=== PATIENT | female | born 1990 | race Hispanic/Latino ===

== ENCOUNTER 2025-01-17 16:48 | Emergency (ER) | payer OTHER ==
[~2025-01-17] VITALS: Ht 152.4 cm; Wt 55.8 kg
[2025-01-17 17:08] LABS: APPEARANCE,URINE CLEAR (CLEAR); BILIRUBIN,URINE NEGATIVE (NEGATIVE); COLOR,URINE YELLOW (YELLOW); GLUCOSE, URINE (UA) NEGATIVE (NEGATIVE); KETONES,URINE 5 mg/dL (NEGATIVE); LEUKOCYTE ESTERASE ,URINE NEGATIVE Leu/uL (NEGATIVE); NITRATE,URINE NEGATIVE (NEGATIVE); OCCULT BLOOD,URINE LARGE (NEGATIVE); PH,URINE 6.5 (5.0-8.0); PROTEIN,URINE 50 mg/dL (NEGATIVE)
[2025-01-17 17:11] LABS: ADD UA MICROSCOPIC YES
[2025-01-17 17:12] LABS: BACTERIA,URINE RARE /HPF (None Seen); MUCUS,URINE FEW LPF (None Seen); SQUAMOUS EPITHELIAL CELL,UR FEW /HPF (0-2)
[2025-01-17 17:15] LABS: BASOPHILS # (AUTO) 0.07 K/uL (0.00-0.20); BASOPHILS % (AUTO) 0.9 % (0.0-5.0); EOSINOPHILS # (AUTO) 0.04 K/uL (0.00-0.70); EOSINOPHILS % (AUTO) 0.5 % (0.0-8.0); HEMATOCRIT 30.1 % (36-48); IMMATURE GRANULOCYTE ABSOLUTE 0.01 K/uL (0-1); LYMPHOCYTES # (AUTO) 2.3 K/uL (1.0-4.8); LYMPHOCYTES % (AUTO) 30.5 % (21.0-51.0); MEAN CORPUSCULAR HEMOGLOBIN 22.1 pg (27.0-33.0); MEAN CORPUSCULAR HGB CONC 29.6 g/dL (32.0-36.0); MEAN CORPUSCULAR VOLUME 74.7 fL (79-99); MONOCYTES # (AUTO) 0.6 K/uL (0.1-1.0); MONOCYTES % (AUTO) 7.9 % (3.0-13.0); NEUTROPHILS # (AUTO) 4.5 K/uL (1.8-7.7); NEUTROPHILS % (AUTO) 60.1 % (40.0-77.0); PLATELET COUNT (AUTO) 392 K/uL (130-400); RED BLOOD CELL COUNT(AUTO) 4.03 MIL/uL (4.00-5.50); RED CELL DISTRIBUTION WIDTH 17.2 % (11.0-15.5); WHITE BLOOD COUNT (AUTO) 7.5 K/uL (4.8-10.8)
[2025-01-17 17:17] LABS: HCG,QUALITATIVE URINE POSITIVE (NEGATIVE)
[2025-01-17 17:22] LABS: CREATININE 0.5 mg/dL (0.5-1.0); POTASSIUM 3.6 mmol/L (3.5-5.1)
--- NOTE | 2025-01-17 17:59 | ERN ---
General Chief Complaint: Vaginal Bleeding Stated Complaint: BLEEDING IN Time Seen by MD: 16:50 Source: patient History of Present Illness Initial Comments Patient is a 34-year-old female coming in to be evaluated for vaginal bleed. Patient states he was a at five weeks by date and noticed earlier today bleeding vaginal area. She states he had mild abdominal discomfort in his here for further evaluation. Allergies: Coded Allergies: No Known Drug Allergies (Unverified Allergy, Unknown, 01/17/25) Past Medical History Past Medical History: No Pertinent History Past Surgical History: Other Surgical History Other: BBL Female( History) LMP: Dec 07, 2024 : 2 Para: 1 Aborts: 0 ROS Dictation CONSTITUTIONAL: No chills, no fever, no weakness, no diaphoresis, no malaise. HEAD/FACE: No signs of trauma. EENT: No eye pain, no blurred vision, no tearing, no double vision, no ear pain, no ear discharge, no nose pain, no nasal congestion, no throat pain, no throat swelling, no mouth pain. RESPIRATORY: No cough, no orthopnea, no SOB, no stridor, no wheezing. CARDIOVASCULAR: No chest pain, no edema, no palpitations, no syncope. GASTROINTESTINAL/ABDOMINAL: No abdominal pain, no constipation, no diarrhea, no nausea, no vomiting. GENITOURINARY: No abnormal discharge, no dysuria, no frequent urination, no hematuria. No complaints of pain in the genitals. MUSCULOSKELETAL: No back pain, no gout, no joint pain, no joint swelling, no muscle pain, no muscle stiffness, no neck pain. INTEGUMENTARY: No change in color, no change in hair/nails, no dryness, no lesion, no lumps, no rash. NEUROLOGICAL/PSYCH: No anxiety, not depressed, no emotional problem, no headache, no numbness, no pre-existing deficit, no history of seizures, no tremors, no weakness. HEMATOLOGIC/LYMPHATIC: Not anemic, no history of blood clots, no apparent bleeding, no bruising, glands not swollen. All Systems Negative, Except as Noted. Physical Exam Physical Exam Dictation VITAL SIGNS: Reviewed. GENERAL APPEARANCE: Alert, oriented x3, no acute distress, obese. HEAD AND FACE: Non-traumatic. EYES: PERRL, pink conjunctivas, eyelid no trauma, anterior chamber clear. EARS: Pinnas intact and no signs of trauma or erythema. Ear canals clear and no discharge. TMs no erythema. NOSE: No discharge, no bleeding. OROPHARYNX: Mouth normal, teeth no caries, tongue pink. Pharynx clear, no erythema. Tonsils no exudates, no abscesses noted. Mucous membrane moist. NECK: Supple, non-tender, no thyromegaly, no masses, no JVD, no bruits. BREAST: Deferred. CHEST: No tenderness, no crepitus, no paradoxical movement, no retractions. LUNGS: Clear, well-ventilated, symmetric, no rales, no wheezing, no rhonchi, no stridor, good breath sounds bilaterally. HEART: Regular rate, regular rhythm, no murmur, no gallops. VASCULAR: No peripheral edema. ABDOMEN: Soft, positive bowel sounds, nondistended, no guarding, nontender, no rebound, no masses no hepatomegaly, no splenomegaly, no Lopez's sign, no herni as. RECTAL: Deferred. GENITAL: Deferred. NEUROLOGICAL: Normal speech, gross motor function intact, gross sensory function intact. MUSCULOSKELETAL: Neck nontender, full range of motion, back nontender, full range of motion. EXTREMITIES: Nontender, full range of motion. SKIN: Color pink, dry, no turgor, no rash, no lacerations, no abrasions, no contusions. LYMPHATICS: Deferred. Results Laboratory and Microbiology Lab and Micro Result Laboratory Tests Test 01/17/25 17:00 01/17/25 17:07 Urine Color YELLOW (YELLOW) Urine Appearance CLEAR (CLEAR) Urine pH 6.5 (5.0-8.0) Urine Specific Sterling 1.039 (1.001-1.031) Urine Protein 50 mg/dL (NEGATIVE) H Urine Glucose (UA) NEGATIVE mg/dL (NEGATIVE) Urine Ketones 5 mg/dL (NEGATIVE) H Urine Occult Blood LARGE (NEGATIVE) H Urine Nitrate NEGATIVE (NEGATIVE) Urine Bilirubin NEGATIVE mg/dL (NEGATIVE) Urine Urobilinogen 2.0 mg/dL (0.2-1.0) H Urine Leukocyte Esterase NEGATIVE Gabo/uL Urine RBC 6-10 /HPF (0-1) H Urine WBC 2-5 /HPF (0-1) H Urine Squamous Epithelial Cells FEW /HPF (0-2) Urine Bacteria RARE /HPF (None Seen) Urine HCG, Qualitative POSITIVE (NEGATIVE) H White Blood Count 7.5 K/uL (4.8-10.8) Red Blood Count 4.03 MIL/uL (4.00-5.50) Hemoglobin 8.9 g/dL (12.0-16.0) L Hematocrit 30.1 % (36-48) L Mean Corpuscular Volume 74.7 fL (79-99) L Mean Corpuscular Hemoglobin 22.1 pg (27.0-33.0) L Mean Corpuscular Hemoglobin Concent 29.6 g/dL (32.0-36.0) L Red Cell Distribution Width 17.2 % (11.0-15.5) H Platelet Count 392 K/uL (130-400) Mean Platelet Volume 8.6 fL (7.5-10.5) Immature Granulocyte % (Auto) 0.1 % (0-1) Neutrophils (%) (Auto) 60.1 % (40.0-77.0) Lymphocytes (%) (Auto) 30.5 % (21.0-51.0) Monocytes (%) (Auto) 7.9 % (3.0-13.0) Eosinophils (%) (Auto) 0.5 % (0.0-8.0) Basophils (%) (Auto) 0.9 % (0.0-5.0) Neutrophils # (Auto) 4.5 K/uL (1.8-7.7) Lymphocytes # (Auto) 2.3 K/uL (1.0-4.8) Monocytes # (Auto) 0.6 K/uL (0.1-1.0) Eosinophils # (Auto) 0.04 K/uL (0.00-0.70) Basophils # (Auto) 0.07 K/uL (0.00-0.20) Absolute Immature Granulocyte (auto 0.01 K/uL (0-1) Nucleated Red Blood Cells 0.0 % (0.0-0.19) Red Blood Cell Morphology See comments Sodium Level 139 mmol/L (136-145) Potassium Level 3.6 mmol/L (3.5-5.1) Chloride Level 104 mmol/L (101-111) Carbon Dioxide Level 27 mmol/L (21-32) Blood Urea Nitrogen 11 mg/dL (7-18) Creatinine 0.5 mg/dL (0.5-1.0) Glomerular Filtration Rate Calc 125 mL/min (>90) Random Glucose 95 mg/dL (70-105) Total Calcium 8.7 mg/dL (8.5-10.1) Human Chorionic Gonadotropin, Quant 369 mIU/mL (0-5) H Labs Reviewed?: Yes MDM MDM: Differential diagnosis: Miscarriage, threatened miscarriage, Rationale: Tests considered and ordered secondary to shared decision making include: labs, ECG and radiology Previous outside records reviewed: Old ER visits. Patient is a 34 Year old female coming in to be evaluated for vaginal bleed. Ultrasound did not disclose any findings possible miscarriage. Patient was advised appropriate follow up with PCP OBGYN in 1-2 weeks. ED Course Orders Procedure Category Date Status Time Cbc With Differential LAB 01/17/25 Complete 16:53 Hcg,Quantitative LAB 01/17/25 Complete 16:53 ,Urine Test LAB 01/17/25 Complete 16:53 Urinalysis Profile LAB 01/17/25 Complete 16:53 Basic Metabolic Panel LAB 01/17/25 Complete 16:53 Us Ob <14 Weeks US 01/17/25 Taken 16:53 Vital Signs Date Time Temp Pulse Resp B/P (MAP) Pulse Ox O2 Delivery O2 Flow Rate FiO2 01/17/25 16:49 98.1 88 16 112/74 98 Room Air 0 01/17/25 16:49 98.1 88 16 112/74 100 Room Air* 0 21 DX & DISP Disposition: Discharge Departure Impression: Primary Impression: Miscarriage, threatened, early Condition: Stable Scripts Acetaminophen (Tylenol) 500 Mg Tab 1 TAB PO Q6HPRN PRN for pain or fever for 5 Days, #30 TAB 0 Refills Prov: NOE ELAINE MD 01/17/25 Additional Instructions: FOLLOW-UP WITH PRIMARY CARE PROVIDER IN 1 TO 2 DAYS. TAKE MEDICATIONS DIRECTED HERE IN THE EMERGENCY ROOM. OKAY TO CONTINUE HOME MEDICATIONS UNLESS OTHERWISE DISCUSSED DURING YOUR VISIT IN THE EMERGENCY ROOM TODAY. RETURN TO YOUR NEAREST EMERGENCY ROOM IF SYMPTOMS WORSEN OR IF THERE IS NO IMPROVEMENT. CALL 911 IF YOU NEED IMMEDIATE ASSISTANCE. TAKE TYLENOL [id number] NEEDED AND IF NO CONTRAINDICATIONS ARE PRESENT. INCREASE ORAL HYDRATION. A WOUND CULTURE OR URINE CULTURE WAS ORDERED HERE IN THE EMERGENCY ROOM DEPARTMENT PLEASE FOLLOW-UP WITH PRIMARY CARE PROVIDER AND ADVISE THEM TO GET REPEAT PORTS FROM OUR FACILITY. IF YOU HAD ANY SARAH WRAP/SPLINTS THAT WERE APPLIED HERE, PLEASE DO NOT REMOVE THEM UNTIL YOU SEE YOUR PRIMARY CARE OR SPECIALTY. Referrals: Referrals: SELF,REFERRAL (PCP) DEEDEE GREY MD Time of Disposition: 18:24 NOE ELAINE MD Jan 17, 2025 17:58
[2025-01-17] MEDS ORDERED: ACET-66 PO (18:27)
[2025-01-17 18:36] VITALS: BP 121/73; PULSE 85; RESP 16; TEMP 98.1; O2SAT 98
--- NOTE | 2025-01-17 19:12 | HMCIMG ---
US OB <14 WEEKS HISTORY: Vaginal bleeding COMPARISON: None TECHNIQUE: Obstetrical ultrasound study was performed. FINDINGS: The uterus measures 10.8 x 5.3 x 4 point centimeter. Right ovary measures 2.1 x 1.6 x 2.3 centimeter. Left ovary measures 2.8 x 1.8 x 2 centimeter. No evidence of intrauterine gestational sac is seen. In a patient with positive test, differential diagnosis would include early versus ectopic versus missed . Beta-hCG correlation is recommended. No fluid is seen in the cul-de-sac. IMPRESSION: 1. No evidence of intrauterine gestational sac is seen. In a patient with positive test, differential diagnosis would include early versus ectopic versus missed . Beta-hCG correlation is recommended.
== END 2025-01-17 18:39 | disposition home or self-care (01) ==
LOC: EDH 16:48
DX: O20.0 Threatened abortion (principal); Z3A.01 Less than 8 weeks gestation of pregnancy; Z98.890 Other specified postprocedural states
CPT/HCPCS: 36415; 76801; 80048; 81001; 81025; 84702; 85025; 99284